=== PATIENT | female | born 1960 | race Caucasian/White ===

== ENCOUNTER 2016-10-16 13:49 | Emergency (ER) | payer BC, OTHER ==
[2016-10-16 13:59] VITALS: RESP 16; TEMP 98.6
[2016-10-16] MEDS ORDERED: DEXAMETHASONE 10 MG/ML VIAL IVP ONE (14:14)
[2016-10-16] MEDS ORDERED: NS 1,000 ML IV ONE (14:14)
[2016-10-16] MEDS ORDERED: METOCLOPRAMIDE 10 MG/2 ML VIAL IVP ONE (14:14)
[2016-10-16] MEDS ORDERED: KETOROLAC 30 MG/1 ML SDV IVP ONE (14:14)
--- NOTE | 2016-10-16 14:16 | EDPHY ---
HPI/HX/ROS/PE/MDM Narrative: CHIEF COMPLAINT: Migraine HPI: The patient is a 56 y/o female, with a history of migraines, arriving with her complaining of severe migraine onset about 12 hours ago. Her states she is usually able to prevent worsening of her migraines with medication, but was unable to head off this episode with her home medication. She cannot remember the name of the medication she uses. She has associated photophobia. She states these symptoms are exactly the same as prior migraines. No weakness, paresthesias, or other symptoms. REVIEW OF SYSTEMS: Aside from elements discussed in the HPI, a comprehensive 10-point review of systems was reviewed and is negative. PMH: Migraines SOCIAL HISTORY: at bedside. Lives in [place]. PHYSICAL EXAM: General:Patient is alert, covering her eyes, appears uncomfortable. ENT: Eye exam limited due to patient's photophobia. ENT inspection normal. Neck: Normal inspection. Full range of motion. Respiratory:No respiratory distress. Breath sounds normal bilaterally. Cardiovascular: Regular rate and rhythm. Strong peripheral pulses. Normal cap refill. Abdomen:The abdomen is nontender to palpation. There are no peritoneal signs. Back: Normal to inspection. No tenderness to palpation. Skin: Normal color. No rash. Warm and dry. Extremities: Normal appearance. Full range of motion. Neuro: Oriented x3. Normal motor function. Normal sensory function. (Chris Martinez) ED Course: 1640 patient is still complaining of a 4/10 headache. She would like more medication here. Will give her haloperidol 2.5 mg IV. 1740 patient improved and asking to go home. Repeat examination: Gen: [Awake], [Alert], [No Distress] HEENT: [ ] Eyes: [PERRLA], [EOMI] Mouth: [Moist mucosa] [] Neck: [Supple] Chest: No distress Heart: Normal pulses Abd: Normal inspection Ext: [no] edema Skin: [no rash] Neuro: [CN II-XII intact], [Sensation grossly intact], Strength [5]/5 in [ bilateral] [upper and] [lower] extremities Will discharged home with follow-up with a neurologist. Patient has a prescription waiting for her for her Relpax but has used more than her monthly alignment. (Kimani Garcia) IV established. Migraine cocktail administered. (Chris Martinez) MDM: This patient presents with what she describes as her typical migraine, without any additional features to suggest meningitis, SAH, CVA or head trauma. We will treat here with migraine cocktail. I have signed this patient out to Dr. Garcia pending repeat exam and reassessment. (Chris Martinez) - Data Points Medications Given: Discontinued Medications Dexamethasone (Decadron Injection) 10 mg IVP EDNOW ONE Stop: 10/16/16 14:15 Last Admin: 10/16/16 14:28 Dose: 10 mg Diphenhydramine HCl (Benadryl Injection) 25 mg IVP EDNOW ONE Stop: 10/16/16 14:15 Last Admin: 10/16/16 14:25 Dose: 25 mg Haloperidol Lactate (Haldol Injection) 2.5 mg IVP EDNOW ONE Stop: 10/16/16 16:43 Last Admin: 10/16/16 16:50 Dose: 2.5 mg Sodium Chloride (Ns) 1,000 mls @ 0 mls/hr IV ONCE ONE PRN Reason: Wide Open Stop: 10/16/16 14:15 Last Admin: 10/16/16 14:20 Dose: 1,000 mls Ketorolac Tromethamine (Toradol) 30 mg IVP EDNOW ONE Stop: 10/16/16 14:15 Last Admin: 10/16/16 14:27 Dose: 30 mg Metoclopramide HCl (Reglan Injection) 10 mg IVP EDNOW ONE Stop: 10/16/16 14:15 Last Admin: 10/16/16 14:25 Dose: 10 mg General Time Seen by Provider: 10/16/16 14:11 Initial Vital Signs: Initial Vital Signs Temperature (C) 37 C 10/16/16 13:57 Heart Rate 72 10/16/16 13:57 Respiratory Rate 16 10/16/16 13:57 Blood Pressure 143/99 H 10/16/16 13:57 O2 Sat (%) 94 10/16/16 13:57 O2 Delivery Mode Room Air Allergies/Adverse Reactions: amoxicillin [Amoxicillin] Allergy (Verified 01/19/13 08:14) nickel Allergy (Uncoded 01/19/13 08:14) Home Medications: Medication Instructions Recorded ELETRIPTAN HYDROBROMIDE [RELPAX] 40 mg PO ONCE 01/19/13 SUMAtriptan [Imitrex 25 MG (RX)] 25 mg PO Q2H PRN #10 tab 01/19/13 Aleve 220 MG (OTC) 11/08/14 oxyCODONE/APAP 5/325 [Percocet 1 tab PO Q4 #15 tab 11/08/14 5/325] Departure - Departure Disposition: Home, Routine, Self-Care Clinical Impression: Migraine Condition: Good Instructions: Migraine Headache (ED) Additional Instructions: Follow up with your neurologist next week. You've been referred to Dr. Nash locally if needed. Use home migraine medications for break through symptoms. Return to the ED for weakness, numbness, vision changes, speech difficulty, or other worsening of condition. Referrals: NONE *PRIMARY CARE P,. [Primary Care Provider] - As per Instructions Matheus Nash MD [Medical Doctor] - As per Instructions Report Scribed for: Chris Martinez Report Scribed by: Gini Persaud Date of Report: 10/16/16 Time of Report: 14:16 Physician Review and Approval Statement: Portions of this note were transcribed by an ED scribe. I personally performed the history, physical exam, and medical decision making; and confirm the accuracy of the information in the transcribed note.
[2016-10-16] MEDS ORDERED: HALOPERIDOL LACT 5 MG/ML INJ IVP ONE (16:42)
[2016-10-16 16:43] VITALS: O2SAT 96
[2016-10-16 17:57] VITALS: BP 110/62; PULSE 80
== END 2016-10-16 17:57 | disposition home or self-care (01) ==
DX: G43.809 Other migraine, not intractable, without status migrainosus (principal)
CPT/HCPCS: 96374; J1200; J1885; J2765

== ENCOUNTER → 2017-04-29 | Outpatient (CLI) | payer OTHER | LOC: FIMAGING 09:20 | PROVIDERS: ATTEND Midwife | DX: Z12.31 Encounter for screening mammogram for malignant neoplasm of breast (principal); Z13.820 Encounter for screening for osteoporosis; M85.80 Other specified disorders of bone density and structure, unspecified site; Z78.0 Asymptomatic menopausal state | CPT/HCPCS: G0202 ==

== ENCOUNTER → 2017-08-20 | Outpatient (CLI) | payer OTHER | LOC: BMCIMAGING 09:16 | PROVIDERS: ATTEND Family Medicine | DX: Z01.811 Encounter for preprocedural respiratory examination (principal); J98.09 Other diseases of bronchus, not elsewhere classified ==